=== PATIENT | female | born 1960 | race Caucasian/White ===

== ENCOUNTER 2018-03-29 06:40 | Day surgery (SDC) | payer OTHER ==
[2018-03-29] MEDS ORDERED: SUGAMMADEX SODIUM 200 MG/2 ML VIAL IV (07:00)
[2018-03-29] MEDS ORDERED: DESFLURANE 15 MIN (07:00)
[2018-03-29] MEDS ORDERED: CEFAZOLIN 2 GM/50 ML (PMX) 50 ML IVPB (07:00)
[2018-03-29] MEDS: SOD CHLORIDE 0.9% 1,000 ML IV (07:24)
[2018-03-29] MEDS ORDERED: ROPIVACAINE 0.5 % 30 ML VIAL (08:39)
[2018-03-29] MEDS ORDERED: MIDAZOLAM 1 MG/ML 2 ML INJ (08:39)
[2018-03-29] MEDS ORDERED: ROCURONIUM 50 MG INJ (08:39)
[2018-03-29] MEDS ORDERED: LIDOCAINE 2% (SDV) 5 ML INJ (08:39)
[2018-03-29] MEDS ORDERED: PROPOFOL 20 ML (08:39)
[2018-03-29] MEDS ORDERED: DEXAMETHASONE 4 MG/ML 5 ML INJ ×2 (08:43→09:36)
[2018-03-29] MEDS ORDERED: LABETALOL HCL 20MG INJ IV (09:30)
[2018-03-29] MEDS ORDERED: HYDROmorphONE 1 MG/5 ML IV SYRINGE IV ×3 (09:30)
[2018-03-29] MEDS ORDERED: ONDANSETRON 4 MG INJ IV (09:30)
[2018-03-29] MEDS ORDERED: CEFAZOLIN 1 GM INJ (09:36)
[2018-03-29] MEDS ORDERED: ONDANSETRON 4 MG INJ (09:36)
[2018-03-29] MEDS: HYDROmorphONE 1 MG/5 ML IV SYRINGE IV ×2 (10:39→11:02)
[2018-03-29] MEDS: HYDROCODONE/APAP (5/325) TAB PO (11:45)
== END 2018-03-29 11:50 | disposition home or self-care (01) ==
LOC: SDS 06:40
DX: K80.20 Calculus of gallbladder without cholecystitis without obstruction (principal); I10 Essential (primary) hypertension; E78.5 Hyperlipidemia, unspecified; E11.9 Type 2 diabetes mellitus without complications
CPT/HCPCS: 47562; 82962; 88304